=== PATIENT | male | born 1930 | race Caucasian/White ===

== ENCOUNTER 2017-09-12 13:42 | Emergency (ER) | payer MEDICARE ==
[2017-09-12 13:43] VITALS: BP 144/65; PULSE 69; RESP 18; TEMP 97.3; O2SAT 96
[2017-09-12] MEDS ORDERED: RESP: ALBUTEROL 2.5 MG/3 ML NEB (SCH) INH ONE (14:30)
[2017-09-12] MEDS ORDERED: ASPI81CH6 CHEW (14:35)
[2017-09-12] MEDS ORDERED: SIMV40TA PO (14:35)
[2017-09-12] MEDS ORDERED: METO25TA3 PO (14:35)
--- NOTE | 2017-09-12 14:48 | PD ---
HPI Chief Complaint: Cold / Flu Symptoms Time Seen by Provider: 14:14 Travel History International Travel<30 days: No Contact w/Intl Traveler<30days: No Traveled to known affect area: No History of Present Illness HPI 87-year-old male that presents to the ED for evaluation of cold-like symptoms for the past 3 weeks. Per patient she's been having congestion and cough that started initially. Per patient he that he will get better but for the past week his been having more symptoms including wheezing. Per patient she's never had that before. He denies any history of COPD or asthma. He states that the cough is productive. Per patient no sick contacts. No recent travel. No chest pain. Patient more concerned about the wheezing as he is never had that before. He denies any history of smoking in the past. He has a history of hypertension and high cholesterol for which he takes medications. Denies any history of heart disease. No allergies to medication. His been taking OTC meds with some relief. Patient has not seen anybody for this. PFSH Past Medical History Cardiovascular Problems: Yes (HTN) High Cholesterol: Yes Hypertension: Yes Myocardial Infarction: Yes Past Surgical History Coronary Artery Bypass Graft: Yes Social History Alcohol Use: Yes (OCC) Tobacco Use: No Substance Use: No Allergies-Medications (Allergen,Severity, Reaction): Coded Allergies: No Known Allergies (Unverified , 09/12/17) Reported Meds & Prescriptions Reported Meds & Active Scripts Active Reported Metoprolol Tartrate 25 Mg Tab 12.5 Mg PO BID Aspirin Low Dose (Aspirin) 81 Mg Chew 81 Mg CHEW DAILY Simvastatin 40 Mg Tab 40 Mg PO HS Review of Systems Except as stated in HPI: all other systems reviewed are Neg Physical Exam Narrative GENERAL: Well-nourished, well-developed patient in no apparent distress. SKIN: Warm and dry. HEAD: Atraumatic. Normocephalic. EYES: Pupils equal and round reactive to light and accommodation. No scleral icterus. No injection or drainage. ENT: No nasal bleeding or discharge. Mucous membranes pink and moist. TMs are clear with no sign of infection or perforation. No mastoid tenderness. Ear canals are intact bilaterally. No lymphadenopathy. Nostril mucosa is red and moist with clear mucus noted. No sinus tenderness to palpation noted. Tonsils are not enlarged or swollen. No ulvua Deviation. Tongue is midline. NECK: Trachea midline. No JVD. No meningeal signs noted CARDIOVASCULAR: Regular rate and rhythm. RESPIRATORY: No accessory muscle use. Mild wheezing heard in the lower lung amaral. Breath sounds equal bilaterally. GASTROINTESTINAL: Abdomen soft, non-tender, nondistended. Hepatic and splenic margins not palpable. MUSCULOSKELETAL: Extremities without clubbing, cyanosis, or edema. No obvious deformities. NEUROLOGICAL: Awake and alert. No obvious cranial nerve deficits. Motor grossly within normal limits. Five out of 5 muscle strength in the arms and legs. Normal speech. PSYCHIATRIC: Appropriate mood and affect; insight and judgment normal. Data Data Last Documented VS Vital Signs Date Time Temp Pulse Resp B/P (MAP) Pulse Ox O2 Delivery O2 Flow Rate FiO2 09/12/17 13:43 97.3 69 18 144/65 (91) 96 Room Air Orders Orders Chest, Pa & Lat (09/12/17 14:17) Albuterol Neb (Albuterol Neb) (09/12/17 14:30) MDM Medical Decision Making Medical Screen Exam Complete: Yes Emergency Medical Condition: Yes Medical Record Reviewed: Yes Interpretation(s) CXR negative Differential Diagnosis Pneumonia versus bronchitis versus asthma versus reactive airway disease Narrative Course 87-year-old male that presents to the ED for elevation of cold like symptoms. Patient was properly examined and was found to have signs and symptoms which appear to be more consistent with bronchitis. Questionable pneumonia. Chest x- ray and bring treatment was done. Patient felt better after breathing treatment. Chest x-ray showed no sign of acute disease. Patient does feel improved after breathing treatment. Wheezing has improved. Possibly bronchitis. I would recommend treating this with azithromycin and albuterol inhaler. Patient agrees with this plan. Close follow with PCP recommended. See ED for any worsening symptoms. OTC meds as needed. Patient agrees with plan. Diagnosis Primary Impression: Bronchitis Patient Instructions: General Instructions Additional Instructions: Motrin and Tylenol for pain and fever. You can use [id number] antihistamine as well as well as Mucinex as needed for runny nose and congestion. Cough drops for cough as needed. Drink plenty of fluids. Follow-up with PCP. See ED for worsening symptoms. Med/Other Pt SpecificInfo: Prescription(s) given Scripts Albuterol 8.5 GM Inh (Proair Hfa 8.5 GM Inh) 90 Mcg/Act Aer 2 PUFF INH Q4-6H Y for SHORTNESS OF BREATH, #1 INHALER 0 Refills 108 mcg/actuation Prov: Ricardo Arshad MD 09/12/17 Azithromycin (Azithromycin) 250 Mg Tab 250 MG PO DIRECTED for Infection, #6 TAB 0 Refills Take 2 tabs (500 mg) on day 1 then 1 tab daily x 4 days. Prov: Ricardo Arshad MD 09/12/17 Disposition: 01 DISCHARGE HOME Condition: Stable Fredo Spangler Sep 12, 2017 14:48
--- NOTE | 2017-09-12 15:32 | RADRPT ---
EXAM DATE/TIME: 09/12/2017 14:41 [facility] COMPARISON: No previous studies available for comparison. INDICATIONS : Wheezing, congestion for 2 weeks MEDICAL HISTORY : Cardiovascular disease. SURGICAL HISTORY : CABG. ENCOUNTER: Subsequent ACUITY: 2 weeks PAIN SCORE: 0/10 LOCATION: Bilateral chest FINDINGS: Postsurgical features of prior median sternotomy and cardiac surgery. No significant focal pleural or parenchymal abnormalities. The cardiomediastinal contours are unremarkable. Multiple healed left-rafia ed rib fractures. CONCLUSION: 1. Postsurgical features. 2. No acute abnormality. Juan Carlos Alford MD on September 12, 2017 at 15:29 Board Certified Radiologist. This report was verified electronically.
[2017-09-12] MEDS ORDERED: AZIT250T3 PO (15:39)
[2017-09-12] MEDS ORDERED: ALBUAER3 INH (15:39)
== END 2017-09-12 16:07 | disposition home or self-care (01) ==
LOC: NEPK 13:42
DX: J40 Bronchitis, not specified as acute or chronic (principal); E78.00 Pure hypercholesterolemia, unspecified; I10 Essential (primary) hypertension
CPT/HCPCS: 71046; 94664; 99283; J7613